=== PATIENT | male | born 1955 | race Caucasian/White ===

== ENCOUNTER 2020-08-26 20:23 | Inpatient (IN) | payer OTHER ==
[~2020-08-26] VITALS: Ht 185.4 cm; Wt 110.7 kg
[2020-08-26 20:30] VITALS: BP 122/70
--- NOTE | 2020-08-26 20:30 | NUR ---
TO BED AMBULATORY
[2020-08-26] MEDS ORDERED: NACL 0.9% 1,000 ML IV ONE (20:45)
[2020-08-26 20:52] LABS: BASOPHILS # (AUTO) 0.1 K/uL (0.00-0.22); BASOPHILS % (AUTO) 0.4 % (0.0-2.0); EOSINOPHILS # (AUTO) 0.3 K/uL (0-0.4); HEMATOCRIT 35.8 % (36-52); LYMPHOCYTES # (AUTO) 1.7 K/uL (2.0-11.5); LYMPHOCYTES % (AUTO) 13.5 % (20.5-51.1); MEAN CORPUSCULAR HEMOGLOBIN 30 pg (27-31); MEAN CORPUSCULAR HGB CONC 34 g/dL (33-37); MEAN CORPUSCULAR VOLUME 88.5 fL (80-94); MONOCYTES # (AUTO) 1.3 K/uL (0.8-1.0); MONOCYTES % (AUTO) 10.4 % (1.7-9.3); NEUTROPHILS # (AUTO) 9.3 K/uL (1.8-7.7); NEUTROPHILS % (AUTO) 73.7 % (42.2-75.2); PLATELET COUNT (AUTO) 370 K/uL (140-450); RED BLOOD CELL COUNT(AUTO) 4.04 MIL/uL (4.20-6.10); RED CELL DISTRIBUTION WIDTH 14.1 % (11.6-13.7); WHITE BLOOD COUNT (AUTO) 12.6 K/uL (4.8-10.8)
--- NOTE | 2020-08-26 20:56 | NUR ---
PORTABLE X-RAY AT BEDSIDE
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
[2020-08-26 21:07] LABS: ALBUMIN 3.8 g/dL (3.4-5.0); ANION GAP 10.9 (8-16); CARBON DIOXIDE 31.2 mmol/L (21-32); CREATININE 1.7 mg/dL (0.6-1.3); POTASSIUM 3.1 mmol/L (3.5-5.1); TOTAL BILIRUBIN 0.3 mg/dL (0.0-1.0)
[2020-08-26] MEDS ORDERED: MORPHINE SULFATE 4 MG/ML SYR IVP ONE (21:35)
[2020-08-26] MEDS ORDERED: ONDANSETRON 4 MG/2 ML VIAL IVP ONE (21:35)
--- NOTE | 2020-08-26 21:47 | NUR ---
PT TRANSPORTED TO CT VIA W/C
--- NOTE | 2020-08-26 21:58 | NUR ---
PT RETURNED FROM CT VIA W/C
[2020-08-26] MEDS ORDERED: HYDROmorphone PFS 2 MG/ML SYR IVP ONE (22:15)
[2020-08-26] MEDS ORDERED: metroNIDAZOLE 500 MG/NS PREMIX 100 ML IV ONE (22:15)
[2020-08-26] MEDS: NACL 0.9% 1,000 ML IV SCH (22:30)
[2020-08-26] MEDS ORDERED: LISI2.5T12 PO (22:33)
[2020-08-26] MEDS ORDERED: DILT30TA18 PO (22:33)
[2020-08-26] MEDS ORDERED: AMIO100T3 PO (22:33)
[2020-08-26] MEDS ORDERED: ROSU5TAB PO (22:33)
[2020-08-26] MEDS ORDERED: TRAZ-343 PO (22:33)
[2020-08-26 23:31] LABS: APPEARANCE,URINE CLEAR (CLEAR); BILIRUBIN,URINE NEGATIVE (NEGATIVE); BLOOD, URINE NEGATIVE (NEGATIVE); COLOR,URINE YELLOW (YELLOW); LEUKOCYTE ESTERASE ,URINE NEGATIVE (NEGATIVE); NITRITE, URINE NEGATIVE (NEGATIVE); UGLUCOSE NEGATIVE (NEGATIVE)
[2020-08-26] MEDS ORDERED: cefTRIAXone 1,000 MG VIAL ONE (23:31)
[2020-08-26] MEDS ORDERED: MAGNESIUM CITRATE 300 ML BTL PO ONE (23:35)
--- NOTE | 2020-08-27 00:10 | NUR ---
SUDDEN ONSET OF NAUSEA, MEDICATED ORDERED
[2020-08-27] MEDS: ONDANSETRON 4 MG/2 ML VIAL IVP PRN ×3 (00:14→08:50)
--- NOTE | 2020-08-27 00:25 | NUR ---
REPORT CALLED TO JERMAN DURAN
--- NOTE | 2020-08-27 00:30 | NUR ---
TO 112B VIA GURNEY ATTACHED TO CYLINDER PRESS OPERATOR APPRENTICE. ACCOMPANIED BY RN AND ERT
[2020-08-27 00:35] VITALS: BP 119/57
--- NOTE | 2020-08-27 00:35 | NUR ---
RECIEVED PT ADMISSION BY ER NURSE, PT BIB VIA GURNEY, ABLE TO AMBULATE TO BED WITH STANDY ASSISTANCE, A&OX4, ABLE TO MAKE NEEDS KNOWN AND FOLLOW SIMPLE COMMANDS, SR ON MONITOR, ON ROOM AIR, VSS, AFEBRILE, SKIN WARM DRY AND INTACT, RAC 20 G PIV INTACT PATENT AND FLUSHED, INFUSING NS @ 150MLS/HR, PT ABLE TO AMBULATE TO BEDSIDE RESTROOM, NO SIGNS OF ACUTE DISTRESS, SAFETY MEASURES IN PLACE, WILL CONTINUE WITH CURRENT POC
[2020-08-27] MEDS: NACL 0.9% 1,000 ML IV SCH ×3 (01:53→11:40)
--- NOTE | 2020-08-27 01:54 | NUR ---
PT COMPLAINING OF FEELING NAUSEATED, ADMINISTERED ZOFRAN VIA IVP
[2020-08-27] MEDS ORDERED: traZODone 50 MG TAB PO PRN (03:30)
[2020-08-27] MEDS ORDERED: MORPHINE SULFATE 4 MG/ML SYR IVP PRN (03:35)
[2020-08-27] MEDS ORDERED: MORPHINE SULFATE 2 MG/ML SYR ONE (03:41)
[2020-08-27 04:00] VITALS: BP 128/60
[2020-08-27] MEDS: MORPHINE SULFATE 2 MG/ML SYR IVP PRN ×3 (04:06→18:16)
--- NOTE | 2020-08-27 04:08 | NUR ---
PT COMPLAINING OF ABD PAIN, PAINS SCALE 6 OF 10, ADMINISTERED MORPHINE IVP
--- NOTE | 2020-08-27 07:15 | NUR ---
RECEIVED REPORT FROM STOCK ASSOCIATE NURSE FOR CONTINUITY OF CARE. PATIENT SITTING UP IN BED. BREATHING IS EVEN AND UNLABORED ALL SAFETY MEASURES IN PLACE WILL CONTINUE TO MONITOR.
--- NOTE | 2020-08-27 07:26 | NUR ---
ENDORSED TO DAY SHIFT RN FOR CONTINUITY OF CARE
[2020-08-27 08:00] VITALS: BP 132/63
[2020-08-27] MEDS: DILTIAZEM 30 MG TAB PO SCH ×2 (09:00→20:43)
[2020-08-27] MEDS: AMIODARONE 200 MG TAB PO SCH ×2 (09:00→11:45)
[2020-08-27] MEDS: lisinopriL 5 MG TAB PO SCH (09:00)
--- NOTE | 2020-08-27 09:57 | NUR ---
DR. ALLRED AT BEDSIDE GOT CONSENT FOR COLONOSCOPY.
--- NOTE | 2020-08-27 11:31 | NUR ---
PATIENT SITTING UP IN BED. NO ACUTE DISTRESS NOTED. ALL SAFETY MEASURES IN PLACE. WILL CONTINUE TO MONITOR.
[2020-08-27] MEDS ORDERED: DOCUSATE SODIUM 100 MG GELCAP PO PRN (11:40)
[2020-08-27] MEDS ORDERED: POTASSIUM CHLORIDE 10 MEQ TABER PO PRN (11:40)
[2020-08-27] MEDS ORDERED: MORPHINE SULFATE 2 MG/ML SYR IVP PRN (11:40)
[2020-08-27] MEDS ORDERED: HYDROcodone/APAP 5/325 MG 1 TAB TAB PO PRN (11:40)
[2020-08-27] MEDS ORDERED: MAG SULF 2000 MG/WATER PREMIX 50 ML IV PRN (11:40)
[2020-08-27] MEDS ORDERED: ACETAMINOPHEN 325 MG TAB PO PRN (11:40)
[2020-08-27] MEDS ORDERED: LORazepam 2 MG/ML VIAL IM/IVP PRN (11:40)
[2020-08-27] MEDS ORDERED: ZOLPIDEM 5 MG TAB PO PRN (11:40)
[2020-08-27 12:00] VITALS: BP 124/60
[2020-08-27 12:24] LABS: BASOPHILS % (AUTO) 0.3 % (0.0-2.0); EOSINOPHILS # (AUTO) 0.3 K/uL (0-0.4); EOSINOPHILS % (AUTO) 3.3 % (0.0-4.0); HEMATOCRIT 32.2 % (36-52); HEMOGLOBIN 10.8 g/dL (12.0-18.0); LYMPHOCYTES # (AUTO) 1.2 K/uL (2.0-11.5); LYMPHOCYTES % (AUTO) 14.9 % (20.5-51.1); MEAN CORPUSCULAR HEMOGLOBIN 30 pg (27-31); MEAN CORPUSCULAR HGB CONC 34 g/dL (33-37); MEAN CORPUSCULAR VOLUME 89.7 fL (80-94); MONOCYTES # (AUTO) 0.8 K/uL (0.8-1.0); MONOCYTES % (AUTO) 9.6 % (1.7-9.3); NEUTROPHILS # (AUTO) 5.9 K/uL (1.8-7.7); NEUTROPHILS % (AUTO) 71.9 % (42.2-75.2); PLATELET COUNT (AUTO) 323 K/uL (140-450); RED BLOOD CELL COUNT(AUTO) 3.59 MIL/uL (4.20-6.10); RED CELL DISTRIBUTION WIDTH 14.3 % (11.6-13.7); WHITE BLOOD COUNT (AUTO) 8.3 K/uL (4.8-10.8)
[2020-08-27 12:50] LABS: ANION GAP 8.4 (8-16); CARBON DIOXIDE 29.5 mmol/L (21-32); CREATININE 1.1 mg/dL (0.6-1.3)
[2020-08-27 12:56] LABS: POTASSIUM 2.9 mmol/L (3.5-5.1)
[2020-08-27 13:02] LABS: CHOL/HDL RATIO 3.5 (1-4.5); HDL CHOLESTEROL 32 mg/dL (40-60); LDL (CALC) 63 mg/dL (60-100); MAGNESIUM 2.7 mg/dL (1.8-2.4); PHOSPHORUS 2.7 mg/dL (2.5-4.9); THYROID STIMULATING HORMONE < 0.01 uIU/mL (0.34-3.74); TRIGLYCERIDES 87 mg/dL (30-150)
--- NOTE | 2020-08-27 13:05 | NUR ---
NOTIFIED DR. BOYLE OF PATIENT POTASSIUM BEING LOW. ORDERED PRN K DUR AND REPEAT LABS BMP.
[2020-08-27] MEDS: metroNIDAZOLE 500 MG/NS PREMIX 100 ML IV SCH ×2 (13:32→20:37)
[2020-08-27] MEDS: LACTULOSE 20 GM/30 ML UDC PO SCH ×3 (13:33→20:33)
[2020-08-27] MEDS ORDERED: BOWEL EVACUANT DRINK 4,000 ML PDS PO SCH (14:00)
[2020-08-27 14:43] LABS: PROTHROMBIN TIME 9.7 secs (10.8-13.4)
--- NOTE | 2020-08-27 15:46 | NUR ---
PATIENT LAYING IN BED. PATIENT REMAINS ON ROOM AIR NO DISTRESS NOTED. PATIENT CONTINUES TO TAKE BOWEL MEDICATIONS FOR COLONOSCOPY. ALL SAFETY MEASURES IN PLACE.
[2020-08-27 16:00] VITALS: BP 141/59
[2020-08-27 16:05] LABS: URINE TOTAL PROTEIN 5.7 mg/dL (0-12)
--- NOTE | 2020-08-27 17:50 | NUR ---
PATIENT ALERT. BREATHING IS EVEN AND UNLABORED. COMPLAINT WITH ROUTINE MEDICATION. GRANDSON AT BEDSIDE. ALL SAFETY MEASURES IN PLACE. WILL CONTINUE TO MONITOR.
[2020-08-27] MEDS: ONDANSETRON 4 MG/2 ML VIAL IM/IVP PRN ×2 (18:16→20:38)
[2020-08-27 18:44] LABS: ANION GAP 9.3 (8-16); CARBON DIOXIDE 30.9 mmol/L (21-32); POTASSIUM 3.2 mmol/L (3.5-5.1)
--- NOTE | 2020-08-27 19:15 | NUR ---
ENDORSED TO HACKSAW INSPECTOR FOR CONTINUITY OF CARE. PATIENT STABLE. ALL SAFETY MEASURES IN PLACE.
--- NOTE | 2020-08-27 19:20 | NUR ---
RECIEVED BEDSIDE ENDORSEMENT FROM DAY SHIFT RN, PT LYING IN BED RESTING, A&OX4, ABLE TO MAKE NEEDS KNOWN AND FOLLOW SIMPLE COMMANDS, AMBULATES TO RESTROOM W/ STANDBY ASSISTANCE, SR ON MONITOR, ON ROOM AIR, VSS, AFEBRILE, SKIN WARM DRY AND INTACT, RAC 20 G PIV INTACT PATENT AND FLUSHED, INFUSING NS @ 150MLS/HR, NO SIGNS OF ACUTE DISTRESS, SAFETY MEASURES IN PLACE, WILL CONTINUE WITH CURRENT POC
[2020-08-27 20:00] VITALS: BP 136/62
[2020-08-27] MEDS: POLYETHYLENE GLYCOL 17 GM/PKT PO SCH (20:34)
--- NOTE | 2020-08-27 20:54 | NUR ---
ADMINISTERED 2100H MEDICATIONS PER MD ORDERS
[2020-08-27] MEDS ORDERED: SIMVASTATIN 10 MG TAB PO SCH (21:00)
[2020-08-27] MEDS ORDERED: DILTIAZEM 30 MG TAB PO SCH (21:00)
[2020-08-27] MEDS ORDERED: SENNA 8.6 MG TAB PO SCH (21:00)
[2020-08-27] MEDS ORDERED: traZODone 50 MG TAB PO SCH (21:00)
--- NOTE | 2020-08-27 23:04 | NUR ---
ADMINISTERED 0000H MEDICATION PER MD ORDERS
[2020-08-28] VITALS: BP 123/55
--- NOTE | 2020-08-28 01:14 | NUR ---
PT ASLEEP AND SHOWING NO SIGNS OF ACUTE DISTRESS
[2020-08-28 04:00] VITALS: BP 133/61
[2020-08-28] MEDS: NACL 0.9% 1,000 ML IV SCH (04:20)
[2020-08-28] MEDS: metroNIDAZOLE 500 MG/NS PREMIX 100 ML IV SCH (04:20)
--- NOTE | 2020-08-28 04:37 | NUR ---
ADMINISTERED 0500H MEDICATION PER MD ORDERS
[2020-08-28 06:54] LABS: BASOPHILS % (AUTO) 0.5 % (0.0-2.0); EOSINOPHILS # (AUTO) 0.3 K/uL (0-0.4); EOSINOPHILS % (AUTO) 4.4 % (0.0-4.0); HEMATOCRIT 31.6 % (36-52); HEMOGLOBIN 10.5 g/dL (12.0-18.0); LYMPHOCYTES # (AUTO) 1.4 K/uL (2.0-11.5); LYMPHOCYTES % (AUTO) 23.2 % (20.5-51.1); MEAN CORPUSCULAR HEMOGLOBIN 30 pg (27-31); MEAN CORPUSCULAR HGB CONC 33 g/dL (33-37); MEAN CORPUSCULAR VOLUME 90.9 fL (80-94); MONOCYTES # (AUTO) 0.7 K/uL (0.8-1.0); MONOCYTES % (AUTO) 12.3 % (1.7-9.3); NEUTROPHILS # (AUTO) 3.6 K/uL (1.8-7.7); NEUTROPHILS % (AUTO) 59.6 % (42.2-75.2); PLATELET COUNT (AUTO) 297 K/uL (140-450); RED BLOOD CELL COUNT(AUTO) 3.47 MIL/uL (4.20-6.10); RED CELL DISTRIBUTION WIDTH 13.8 % (11.6-13.7)
[2020-08-28 07:08] LABS: ANION GAP 8.7 (8-16); CARBON DIOXIDE 31.6 mmol/L (21-32); POTASSIUM 3.3 mmol/L (3.5-5.1)
--- NOTE | 2020-08-28 07:11 | NUR ---
ENDORSED TO DAY SHIFT RN FOR CONTINUITY OF CARE
--- NOTE | 2020-08-28 07:12 | NUR ---
RECEIVE REPORT FROM FRENCH FOLDER NURSE FOR CONTINUITY OF CARE. PATIENT UP IN BED. BREATHING IS EVEN AND UNLABORED. ALL SAFETY MEASURES IN PLACE. WILL CONTINUE TO MONITOR.
[2020-08-28 07:21] LABS: MAGNESIUM 2.3 mg/dL (1.8-2.4); PHOSPHORUS 2.9 mg/dL (2.5-4.9)
[2020-08-28] MEDS ORDERED: traZODone 50 MG TAB PO PRN (07:24)
[2020-08-28 08:00] VITALS: BP 139/63
--- NOTE | 2020-08-28 08:55 | NUR ---
PATIENT AWAKE. NO ACUTE DISTRESS NOTED. DAUGHTER AT BEDSIDE. ALL SAFETY MEASURES IN PLACE. WILL CONTINUE TO MONITOR.
[2020-08-28] MEDS: LACTULOSE 20 GM/30 ML UDC PO SCH ×2 (08:58→13:00)
[2020-08-28] MEDS: DILTIAZEM 30 MG TAB PO SCH (08:58)
--- NOTE | 2020-08-28 08:58 | NUR ---
PATIENT HAS BEEN SCREENED AND CATEGORIZED LOW NUTRITION RISK. PATIENT WILL BE SEEN WITHIN 7 DAYS OF ADMISSION. 09/02/[address]
[2020-08-28] MEDS: AMIODARONE 200 MG TAB PO SCH (08:59)
[2020-08-28] MEDS ORDERED: AMIODARONE HCL PO SCH (09:00)
[2020-08-28] MEDS ORDERED: PANTOPRAZOLE 40 MG INJ VIAL IVP SCH (09:00)
[2020-08-28] MEDS ORDERED: NON-FORMULARY ITEM (Rosuvastatin Calcium* (Crestor*) 1 TAB) PO SCH (09:00)
[2020-08-28] MEDS: POLYETHYLENE GLYCOL 17 GM/PKT PO SCH (09:00)
[2020-08-28] MEDS ORDERED: lisinopriL 5 MG TAB PO SCH (09:00)
[2020-08-28] MEDS: lisinopriL 5 MG TAB PO SCH (09:02)
[2020-08-28] MEDS ORDERED: CRUSHER, PILL MC ONE (09:06)
[2020-08-28] MEDS: ONDANSETRON 4 MG/2 ML VIAL IM/IVP PRN ×2 (10:11→13:12)
[2020-08-28] MEDS: MORPHINE SULFATE 2 MG/ML SYR IVP PRN (10:12)
--- NOTE | 2020-08-28 11:48 | NUR ---
PATIENT TAKEN TO OR FOR COLONOSCOPY.
[2020-08-28 12:00] VITALS: BP 127/58
[2020-08-28] MEDS ORDERED: fentaNYL citrate 0.05 MG/ML VIAL ONE (12:04)
[2020-08-28] MEDS ORDERED: diphenhydrAMINE 50 MG/ML VIAL ONE (12:04)
[2020-08-28] MEDS ORDERED: MIDAZOLAM 5 MG/5 ML VIAL ONE (12:04)
[2020-08-28] MEDS ORDERED: fentaNYL citrate 0.05 MG/ML VIAL IVP ONE (12:25)
[2020-08-28] MEDS ORDERED: MIDAZOLAM 2 MG/2 ML VIAL IVP ONE (12:25)
--- NOTE | 2020-08-28 12:45 | NUR ---
PATIENT RETURN TO UNIT FROM COLONOSCOPY. PATIENT AWAKE AND STABLE. BREATHING IS EVEN AN UNLABORED. ALL SAFETY MEASURES IN PLACE. WILL CONTINUE TO MONITOR.
[2020-08-28 15:46] VITALS: BP 126/50
--- NOTE | 2020-08-28 15:55 | NUR ---
DC PLANNING: CM SPOKE WITH PATIENT AT BEDSIDE. PATIENT LIVES ALONE IN A SINGLE STORY HOUSE AND IS INDEPENDENT IN ALL ACTIVITIES. NO PRIOR HOME HEALTH OR DME. S/P COLONOSCOPY TODAY, PLAN IS TO DC TO DAUGHTERS HOME IN [place] AND THEN TO RETURN TO HIS HOME IN [place]. CM WILL CONTINUE TO FOLLOW FOR NEEDS.
--- NOTE | 2020-08-28 16:25 | NUR ---
PATIENT ALERT AND STABLE. ALL VS WITHIN NORMAL LIMITS. PATIENT DISCHARGE INFORMATION GIVEN. ALL INSTRUCTION AND EDUCATION PROVIDED. ALL QUESTIONED ANSWERED. PATIENT VERBALIZE UNDERSTANDING. PATIENT TOOK ALL BELONGING HOME. WRIST BAND AND IV REMOVED. CATHETER INTACT. PATIENT WALKED TO THE FRONT LOBBY WITH DAUGHTER.
== END 2020-08-28 16:25 | disposition home or self-care (01) | DRG 393 ==
LOC: MED 20:23 → MMU 22:36 → MTU 23:42
PROC: 0DCH8ZZ Extirpation of Matter from Cecum, Via Natural or Artificial Opening Endoscopic (ICD-10-PCS; principal; 2020-08-28 12:00)
DX: T18.4XXA Foreign body in colon, initial encounter (principal); N17.0 Acute kidney failure with tubular necrosis; E87.6 Hypokalemia; E86.0 Dehydration; E03.9 Hypothyroidism, unspecified; E66.9 Obesity, unspecified; K57.30 Diverticulosis of large intestine without perforation or abscess without bleeding; Z68.32 Body mass index [BMI] 32.0-32.9, adult; I10 Essential (primary) hypertension; I48.91 Unspecified atrial fibrillation; Z85.46 Personal history of malignant neoplasm of prostate; X58.XXXA Exposure to other specified factors, initial encounter; Y93.89 Activity, other specified; Y92.89 Other specified places as the place of occurrence of the external cause; Y99.8 Other external cause status; D72.829 Elevated white blood cell count, unspecified; G47.00 Insomnia, unspecified
CPT/HCPCS: 36415; 71045; 74018; 80048; 80053; 81003; 82140; 82570; 83036; 83690; 83735; 83880; 84100; 84134; 84436; 84443; 85025; 85610; 85730; 87040; 87081; 87086; 96361; 96365; 96367; 96375; 99285; C9113; J0696; J1170; J1200; J1644; J2250; J2270; J2405; J3010; J3490; J7030; J7060; Q9967